=== PATIENT | male | born 1970 | race African-American/Black ===

== ENCOUNTER 2025-07-18 23:18 | Emergency (ER) | payer MEDICAID ==
[~2025-07-18] VITALS: Ht 182.9 cm; Wt 91.0 kg
[2025-07-19 00:38] LABS: *AMPHETAMINES SCREEN URINE NEGATIVE (NEGATIVE); *BARBITURATES SCREEN URINE NEGATIVE (NEGATIVE); *BENZODIAZEPINES SCREEN URINE NEGATIVE (NEGATIVE); *COCAINE SCREEN URINE NEGATIVE (NEGATIVE); CANNABINOID URINE SCREEN PRESUMPTIVE POSITIVE (NEGATIVE); ECSTASY MDMA SCREEN URINE NEGATIVE (NEGATIVE); METHADONE URINE SCREEN NEGATIVE (NEGATIVE); OPIATES URINE SCREEN NEGATIVE (NEGATIVE); PHENCYCLIDINE URINE SCREEN NEGATIVE (NEGATIVE)
[2025-07-19] MEDS: HALOPERIDOL LACTATE 5MG/ML VIAL IM ONE (01:11)
[2025-07-19 03:40] VITALS: O2SAT 98
[2025-07-19 03:41] LABS: BASOPHILS % 0.8 % (0.0-2.0); EOSINOPHILS % 0.7 % (0.0-5.0); HEMATOCRIT. 48.2 % (42.0-52.0); HEMOGLOBIN. 15.8 g/dL (14.0-18.0); LYMPHOCYTES % 45.0 % (20.0-50.0); MEAN PLATELET VOLUME 6.8 fl (7.4-10.4); MONOCYTES % 7.2 % (2.0-8.0); NEUTROPHILS % 46.3 % (40.0-76.0); PLATELET 205 x1000/uL (130-400); RED BLOOD CELL COUNT 5.06 mill/uL (4.7-6.1); RED CELL DISTRIBUTION WIDTH 15.2 % (11.6-14.6)
[2025-07-19 03:54] LABS: CREATININE 0.8 mg/dL (0.6-1.3)
[2025-07-19 03:55] LABS: UREA NITROGEN BLOOD 7 mg/dL (9-23)
[2025-07-19 04:33] LABS: ETHANOL BLOOD 372 mg/dL (<10)
[2025-07-19] MEDS: CHLORDIAZEPOXIDE 25MG CAPSULE PO ONE (04:52)
[2025-07-19 05:58] VITALS: BP 111/86; PULSE 89; RESP 16; TEMP 36.8; O2SAT 99
== END 2025-07-19 06:11 | disposition home or self-care (01) ==
LOC: EDBD 23:18 → ER 23:18
DX: T51.0X1A Toxic effect of ethanol, accidental (unintentional), initial encounter (principal); F10.129 Alcohol abuse with intoxication, unspecified; Z79.899 Other long term (current) drug therapy; Y90.9 Presence of alcohol in blood, level not specified; Y92.89 Other specified places as the place of occurrence of the external cause
CPT/HCPCS: 36415; 99285; 80305; 80048; 80320; 85025; 96372; Z7610; J1630; G0480